=== PATIENT | female | born 1930 | race Caucasian/White ===

== ENCOUNTER 2018-07-12 12:36 | Outpatient (CLI) | payer MEDICARE ==
--- NOTE | 2018-07-12 14:24 | RAD ---
TWO VIEWS OF THE ABDOMEN: HISTORY: Nausea, weight loss, diarrhea. FINDINGS: Supine and upright views of the abdomen are obtained. 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 Dorsal column stimulator is in place. In the lower lumbar region, pedicle crews and surgical hardware in place. Right abdominal wall surgical sutures seen. Bilateral calcified granulomas seen over the buttocks. There is an area of calcification also seen over the left upper quadrant of the abdomen. No definite evidence of bowel obstruction or ileus seen. No free intraperitoneal air is seen. No ev idence of air fluid level is seen. A moderate amount of stool is seen in the colon. IMPRESSION: Extensive surgical changes with no evidence of acute intraabdominal abnormality seen on plain film ra diography. POS: [place]
== END 2018-07-12 12:37 | disposition home or self-care (01) ==
LOC: BICRAD 12:36
PROVIDERS: ATTEND Physician Assistant Medical
DX: R11.0 Nausea (principal); R63.4 Abnormal weight loss; R19.7 Diarrhea, unspecified; R53.83 Other fatigue; R53.81 Other malaise; Z98.890 Other specified postprocedural states
CPT/HCPCS: 74019